=== PATIENT | female | born 1960 | race Hispanic/Latino ===

== ENCOUNTER → 2017-12-17 | Day surgery (SDC) | payer OTHER ==
[~2017-12-17] VITALS: Ht 167.6 cm; Wt 90.7 kg
[~2017-12-17] MED LIST: CRESTOR10 M1 PO; GLUCOPHAGE1000 M1 PO; LISINOPRIL-HCT1 EACH PO; NOVOLOG100 UNIT/2 SC; VICODIN5-300 PO
--- NOTE | 2017-12-21 14:23 | Operative Report ---
Operative/Inv Procedure Report Surgery Date: 12/17/17 Name of Procedure: D&C hysteroscopy Pre-Operative Diagnosis: Menorrhagia Post-Operative Diagnosis: Same Estimated Blood Loss: less than 50ml Surgeon/Insights Analyst: Trudy Arredondo MD Anesthesia: moderate sedation Operative/Procedure Note Note: Patient was taken to the operating room placed in dorsal supine position. After adequate anesthesia, patient was prepped and draped for surgery. Examination under anesthesia was performed. CO2 tenaculum was placed on the anterior lip of the cervix gentle downward traction was used. The cervix was dilated 29 Hegar to left insertion of the hysteroscope. Under direct visualization to hysteroscopy was performed using gas hysteroscope was removed and endocervical curettage was performed. And endometrial curettage was performed. All instruments removed from the vagina. The counts were correct the patient was awakened from anesthesia. And transported to recovery room awake and alert.
== END ==
LOC: STS 02:21
DX: N95.0 Postmenopausal bleeding (principal); N72 Inflammatory disease of cervix uteri; N84.0 Polyp of corpus uteri; E10.9 Type 1 diabetes mellitus without complications; Z79.4 Long term (current) use of insulin; I10 Essential (primary) hypertension
CPT/HCPCS: 88305; J2250

== ENCOUNTER → 2018-04-01 | Day surgery (SDC) | payer OTHER ==
[~2018-04-01] VITALS: Ht 167.6 cm; Wt 90.7 kg
--- NOTE | 2018-04-01 11:46 | ULTRASOUND REPORT ---
EXAMINATION: Intraoperative ultrasound CLINICAL INFORMATION: Metromenorrhagia COMPARISON: None. TECHNIQUE: Intraoperative ultrasound was provided for use by Dr. Arredondo. A total of 18 images were saved to PACS. A radiologist was not present during the procedure. FINDINGS\E\IMPRESSION: Intraoperative ultrasound provided for use by Dr. Arredondo. Please see operative note for detailed findings.
--- NOTE | 2018-04-06 13:19 | Operative Report ---
Operative/Inv Procedure Report Surgery Date: 04/01/18 Name of Procedure: D&C cryoablation under ultrasound guidance Pre-Operative Diagnosis: metromenorrhagia Post-Operative Diagnosis: Same Estimated Blood Loss: scant Surgeon/Tile Layer Drainage: Arnulfo DIAS,Trudy Castrejon Anesthesia: local monitored anesthesi Operative/Procedure Note Note: Serial patient was taken the operating position assessment progress. Dorsal position the vagina from dorsal fashion bladder was catheterized examination anesthesia performed at this point bladder was filled approximately 250 mL normal saline to contact personally into cervix and cervix dilated 29 Hegar on the a sharp curettage endometrial was performed sharp curettage and cervical was found to center pathology at this point the probe was placed under ultrasound guidance into the uterus for approximately 8 minutes on each side stasis was apparent probe was heated and removed I this point the on since removed the vagina patient was returned spine position awakened from anesthesia and transferred recovery room awake alert counts correct
== END ==
LOC: STS 02:34 → XRY 09:00
DX: N95.0 Postmenopausal bleeding (principal); N85.8 Other specified noninflammatory disorders of uterus; I10 Essential (primary) hypertension; E11.9 Type 2 diabetes mellitus without complications; Z79.4 Long term (current) use of insulin; Z79.84 Long term (current) use of oral hypoglycemic drugs
CPT/HCPCS: 36415; 76998; 93005; 93010; J2250

== ENCOUNTER 2018-05-06 01:54 | Inpatient (IN) | payer OTHER ==
[~2018-05-06] VITALS: Ht 167.6 cm; Wt 89.8 kg
[~2018-05-06 01:54] MED LIST changes: +FISH OIL 1,001000 MG PO; +NASONEX17 GM NASB
--- NOTE | 2018-05-06 09:33 | Operative Report ---
Operative/Inv Procedure Report Surgery Date: 05/06/18 Name of Procedure: cystoscopy: bilateral stent insertion Pre-Operative Diagnosis: Menometrorrhagia Post-Operative Diagnosis: same Estimated Blood Loss: scant Surgeon/Export Packer: MD Joe, Jim-urology Anesthesia: general endotracheal tube Specimens: ucx Complications: none Operative/Procedure Note Note: The patient was taken to the operating room and placed on the OR table in supine position. Timeout was performed, with the patient awake, to confirm identify, planned procedures, anesthesia, antibiotics and other pertinent deacon-operative information. After adequate anesthesia, and IV antibiotics, the patient was placed in lithotomy Yellow-fin stirrups. She was then draped and prepped in the usual surgical fashion, including a vaginal prep. A 22 Tajik cystoscope sheath with a 30 angle lens was inserted into the bladder without significant difficulty. The bladder was thoroughly and systematically examined, and was noted to be free of tumor, free of stone, free of endometriosis. Both ureteral orifices were in their orthotopic positions with clear reflux bilaterally. Under direct visualization the left orifice was intubated with a 5 Tajik whistle-tip catheter, which was advanced easily into the left kidney pelvis. The right ureteral orifice was intubated with a second 5 Tajik ureteral whistle tip catheter, and advanced into the right renal pelvis without difficulty. For identification purposes the blue marked stent went into the left kidney and the right ureteral stent was marked red. Urine culture was obtained and sent to pathology. The cystoscope was then removed leaving both stents in proper place. An 18 Tajik Quijano catheter was inserted draining clear fluid and 10 mL of sterile water was then placed in the balloon. The ends ureteral stents, which protruded externally, were taped to the Quijano catheter in order to secure their position. The individual ureteral stents were then connected to their individual drainage devices. All sponge needle and instrument count were correct at the end of this case. The patient tolerated the procedure well. The patient was then placed in supine position with Venodyne's in place. At this Dr. Arredondo was able to proceed with the patient's surgery. Discharge Disposition: proceed with Dr. Arredondo CC: Jim Diaz MD
--- NOTE | 2018-05-06 10:03 | Operative Report ---
Operative/Inv Procedure Report Surgery Date: 05/06/18 Name of Procedure: Supracervical hysterectomy bilateral salpingo-oophorectomy removal of stents Pre-Operative Diagnosis: Pelvic pain Post-Operative Diagnosis: Same Estimated Blood Loss: 500 Surgeon/Hospice Entrance Attendant: Arnulfo DIAS,Trudy Castrejon and Enrique Ghosh Anesthesia: general endotracheal tube Operative/Procedure Note Note: C patient was taken to the operating room placed supine position after adequate induction of general anesthesia endotracheal tube patient was placed in dorsal lithotomy position examination under anesthesia performed a cystoscopy was performed stents were placed by Jim Diaz MD patient was returned supine position I at this point the abdomen was prepped and draped so fashion through an old Pfannenstiel skin incision skin was cut was carried down to rectus fascia which was cut in curvilinear fashion I direction peritoneal cavity was entered high into the abdomen the eye at this point the Franco O'Jorge was placed in usual fashion patient tolerated that well. On the round ligament on the right was identified suture-ligated using 0 round ligament left was identified and sutured using 0 patient tolerated that well. The bladder flap was developed sharply as well as bluntly sequentially cervical branches uterine artery and the right left were clamped and cut to level of the external os the were suture- ligated using 0 hemostasis was apparent specimen was removed using a Bovie this cases supracervical hysterectomy the cuff was reapproximated using 0 hemostasis was apparent at this point the right ovary and tube were held with a Gary clamped with a sanders ducts 2 removed and the pedicle was oversewn 2 using 0 hemostasis was apparent left tube was picked up with a Gary clamp 2 Sanders ducts the r left ovary and tube were removed. At this point all pedicles were reexamined and resutured the cuff was found to be hemostatic and was irrigated copious amounts warm saline until clear on since removed from the abdomen after Ammon had been applied to the cervical cough peritoneum was reapproximated 0 the fascia was reapproximated to #1 Maxon sutures hemostasis was apparent simultaneous tissue was reapproximated using 20 skin was reapproximated [place] the end the case stents removed bilaterally intact on patient was returned spine position extubated awakened from anesthesia and transferred recovery room awake alert counts correct Findings: Size uterus normal ovaries otherwise normal anatomy
[2018-05-06 17:32] LABS: ABSOLUTE BASOPHIL COUNT 0 /CUMM (0.0-0.2); ABSOLUTE EOSINOPHIL COUNT 0 /CUMM (0.0-0.7); ABSOLUTE GRANULOCYTE CT 11.4 /CUMM (1.4-6.5); ABSOLUTE LYMPH COUNT 0.8 /CUMM (1.2-3.4); ABSOLUTE MONOCYTE COUNT 0.2 /CUMM (0.10-0.60); BASOPHIL % 0 % (0.0-2.0); EOSINOPHIL % 0 % (0-5); HEMATOCRIT 41.6 % (37-47); MEAN CORPUSCULAR HGB 28.8 PG (27.0-31.0); MEAN CORPUSCULAR HGB CONC 33.3 G/DL (33.0-37.0); MEAN CORPUSCULAR VOLUME 86.6 FL (81.0-99.0); MEAN PLATELET VOLUME 10.7 FL (7.4-10.4); PLATELET COUNT 234 /CUMM (130-400); RBC DISTRIBUTION WIDTH 14.2 % (11.5-14.5)
[2018-05-06 17:40] LABS: WHITE BLOOD CELL COUNT 12.4 /CUMM (4.8-10.8)
--- NOTE | 2018-05-06 21:25 | Cons- Medical ---
General Information and HPI Consulting Request Date of Consult: 05/06/18 Requested By: Trudy Arredondo MD Reason for Consult: Manage her diabetes Source of Information: patient, old records Exam Limitations: no limitations History of Present Illness: 57 year old female admitted for elective surgery. History od DM2,Hyperlipidemia, hypertension. Today had a supracervical hysterectomy and bilateral salpingooophorectomy, did well sugars slighty elevated got insulin coverage once , Will restart oral medications in AM and monitor sugars closely. Allergies/Medications Allergies: Coded Allergies: No Known Allergies (03/31/18) Home Med List: Insulin Aspart (Novolog) 100 UNIT/ML VIAL 40 UNITS SC BID DM (Reported) Lisinopril/Hydrochlorothiazide (Lisinopril-Hctz 20-12.5 MG Tab) 20 MG-12.5 MG TABLET 1 TAB PO DAILY BP (Reported) Metformin HCl (Glucophage) 1,000 MG TABLET 1 TAB PO BID DM (Reported) Mometasone Furoate (Nasonex) 50 MCG SPRAY.PUMP 1 SPRAY NASB DAILY ALLERGIES ( Reported) [place]-3/Dha/Epa/Fish Oil (Fish Oil 1,000 MG Softgel) (Unknown Strength) CAPSULE (Unknown Dose) PO DAILY SUPPLEMENT (Reported) Rosuvastatin Calcium (Crestor) 10 MG TABLET 1 TAB PO DAILY CHOLESTEROL ( Reported) Current Medications: Current Medications Sig/Eddy Start time Last Medication Dose Route Stop Time Status Admin Acetaminophen 1,000 MG .STK-MED ONE 05/06 07 DC IV 05/06 0703 Atorvastatin Calcium 40 MG 1700 05/06 1700 AC 05/06 PO 1704 Cefoxitin Sodium 2,000 MG ONCE 05/06 0000 NR IV 05/06 2359 Dexamethasone 4 MG .STK-MED ONE 05/06 07 DC IM 05/06 07 Dextrose/Lactated 1,000 ML Q8H 05/06 1015 AC 05/06 Ringer's IV 1915 Diphenhydramine HCl 25 MG Q6P PRN 05/06 1015 AC INJ Docusate Sodium 100 MG BID 05/06 2100 AC 05/06 PO 2011 Duloxetine HCl 30 MG DAILY 05/06 1250 AC 05/06 PO 1653 Enoxaparin Sodium 40 MG DAILY 05/07 0900 AC SC Fentanyl Citrate 200 MCG .STK-MED ONE 05/06 07 DC IM 05/06 0703 Hydrochlorothiazide 12.5 MG DAILY 05/06 1600 AC 05/06 PO 1654 Hydromorphone HCl 2 MG .STK-MED ONE 05/06 1049 DC IM 05/06 1050 Hydromorphone HCl 2 MG .STK-MED ONE 05/06 1029 DC IM 05/06 1030 Hydromorphone HCl 50 MG Q24H PRN 05/06 1015 AC Sodium Chloride 45 ML IV Hydromorphone HCl 2 MG .STK-MED ONE 05/06 0701 DC IM 05/06 0702 Ibuprofen 800 MG Q6P PRN 05/07 1015 AC PO Insulin Human Regular 3 UNITS ONCE ONE 05/06 1845 DC 05/06 SC 05/06 1846 1847 Ketorolac 30 MG Q6P PRN 05/06 1015 AC 05/06 Tromethamine INJ 1523 Ketorolac 30 MG .STK-MED ONE 05/06 1013 DC Tromethamine IV 05/06 1014 Linaclotide 145 MCG 0700 05/06 1600 AC 05/06 PO 1654 Lisinopril 20 MG DAILY 05/06 1600 AC 05/06 PO 1656 Magnesium Hydroxide 30 ML AT BEDTIME NEED.. 05/07 1015 AC PO Metformin HCl 500 MG 0800,1700 05/07 0800 AC PO Midazolam HCl 2 MG .STK-MED ONE 05/06 0702 DC IM 05/06 0703 Ondansetron HCl 4 MG Q6P PRN 05/06 1015 AC 05/06 IV 1525 Ondansetron HCl 4 MG .STK-MED ONE 05/06 1013 DC IV 05/06 1014 Oxycodone/ 1 TAB Q4P PRN 05/07 1015 AC Acetaminophen PO Sitagliptin Phosphate 100 MG 8AM 05/07 0800 AC PO Review of Systems Review of Systems Constitutional: Reports: see HPI. Past History Medical History Neurological: NONE EENT: NONE Cardiovascular: HIGH CHOLESTEROL Respiratory: NONE Gastrointestinal: NONE Hepatic: NONE Renal: NONE Musculoskeletal: NONE Psychiatric: NONE Endocrine: diabetes Blood Disorders: NONE Cancer(s): NONE ACCOUNTANT MANAGER/Reproductive: NONE Surgical History Surgical History: cholecystectomy, , hysterectomy Psychosocial History Smoking Status: Unknown If Ever Smoked Exam & Diagnostic Data Last 24 Hrs of Vital Signs/I&O Vital Signs Date Time Temp Pulse Resp B/P B/P Pulse O2 O2 Flow FiO2 Mean Ox Delivery Rate 05/06 1656 98.6 84 18 158/70 Physical Exam General Appearance: well developed/nourished, no apparent distress, alert, awake Head: atraumatic, normal appearance Eyes: Bilateral: PERRL, EOMI. Ears, Nose, Throat: normal pharynx Neck: supple, full range of motion Respiratory: normal breath sounds, lungs clear Cardiovascular: regular rate/rhythm, norml femoral pulses equa Gastrointestinal: non-tender, slight tender to deep palpation (post OP.) Rectal: deferred Extremities: normal inspection, no edema Neurologic/Psych: alert, oriented x 3, substation wireman II-XII nml as tested Cranial Nerves: normal hearing, normal speech, PERRL Skin: warm/dry Lymphatic: no anterior cervical allen Last 24 Hrs of Labs/Salvatore: Laboratory Tests 05/06/18 1705: CBC w Diff NO MAN DIFF REQ, RBC 4.80, MCV 86.6, MCH 28.8, MCHC 33.3, RDW 14.2, MPV 10.7 H, Gran % 92.0 H, Lymphocytes % 6.3 L, Monocytes % 1.7, Eosinophils % 0, Basophils % 0, Absolute Granulocytes 11.4 H, Absolute Lymphocytes 0.8 L, Absolute Monocytes 0.2, Absolute Eosinophils 0, Absolute Basophils 0 Assessment/Plan Assessment/Plan Dr Arredondo Problem List: 1. Diabetes 2. Hyperlipidemia 3. Hypertension 4. Post hysterectomy menopause Copies To: Arnulfo DIAS,Trudy Castrejon; Lorie DIAS,Damien Vega Acknowledgment - Thank you for your consult request. Attending MD Review Statement Attending Statement Attending MD Statement: examined this patient, discuss w/resident/PA/LAUNDRY PRESSER
[2018-05-07 09:07] VITALS: BP 136/68
[2018-05-07 09:13] LABS: ABSOLUTE BASOPHIL COUNT 0 /CUMM (0.0-0.2); ABSOLUTE EOSINOPHIL COUNT 0 /CUMM (0.0-0.7); ABSOLUTE GRANULOCYTE CT 7.2 /CUMM (1.4-6.5); ABSOLUTE LYMPH COUNT 2.1 /CUMM (1.2-3.4); ABSOLUTE MONOCYTE COUNT 0.7 /CUMM (0.10-0.60); BASOPHIL % 0.2 % (0.0-2.0); EOSINOPHIL % 0.3 % (0-5); GRANULOCYTE % 71.5 % (42.2-75.2); HEMATOCRIT 37.9 % (37-47); MEAN CORPUSCULAR HGB 29.3 PG (27.0-31.0); MEAN CORPUSCULAR HGB CONC 34.1 G/DL (33.0-37.0); MEAN CORPUSCULAR VOLUME 85.9 FL (81.0-99.0); PLATELET COUNT 215 /CUMM (130-400); RBC DISTRIBUTION WIDTH 13.8 % (11.5-14.5); RED BLOOD CELL CT 4.41 /CUMM (4.20-5.40); WHITE BLOOD CELL COUNT 10.1 /CUMM (4.8-10.8)
--- NOTE | 2018-05-07 11:22 | PN- Att Addend ---
Attending Addendum Attending Brief Note No new complaints, vital signs are stable, no fever. Blood sugars still little elevated this morning to 224, discontinued IVs, and restarted the p.o. hypoglycemic medications and diabetic diet. Continue treatments as per BINMAN, continue to ambulate. Current Medications Sig/Eddy Start time Last Medication Dose Route Stop Time Status Admin Atorvastatin Calcium 40 MG 1700 05/06 1700 AC 05/06 PO 1704 Cefoxitin Sodium 2,000 MG ONCE 05/06 0000 DC IV 05/06 2359 Dextrose/Lactated 1,000 ML Q8H 05/06 1015 AC 05/07 Ringer's IV 0300 Diphenhydramine HCl 25 MG Q6P PRN 05/06 1015 AC INJ Docusate Sodium 100 MG BID 05/06 2100 AC 05/07 PO 0902 Duloxetine HCl 30 MG DAILY 05/06 1250 AC 05/07 PO 0902 Enoxaparin Sodium 40 MG DAILY 05/07 0900 AC 05/07 SC 0907 Hydrochlorothiazide 12.5 MG DAILY 05/06 1600 AC 05/07 PO 0902 Hydromorphone HCl 50 MG Q24H PRN 05/06 1015 AC Sodium Chloride 45 ML IV Ibuprofen 800 MG Q6P PRN 05/07 1015 AC PO Insulin Human Regular 3 UNITS ONCE ONE 05/06 1845 DC 05/06 FL 05/06 1846 1847 Ketorolac 30 MG Q6P PRN 05/06 1015 AC 05/07 Tromethamine INJ 1033 Linaclotide 145 MCG 0700 05/06 1600 AC 05/07 PO 0652 Lisinopril 20 MG DAILY 05/06 1600 AC 05/07 PO 0907 Magnesium Hydroxide 30 ML AT BEDTIME NEED.. 05/07 1015 AC PO Metformin HCl 500 MG 0800,1700 05/07 0800 AC 05/07 PO 0750 Ondansetron HCl 4 MG Q6P PRN 05/06 1015 AC 05/07 IV 0408 Oxycodone/ 1 TAB Q4P PRN 05/07 1015 AC Acetaminophen PO Sitagliptin Phosphate 100 MG 8AM 05/07 0800 AC 05/07 PO 0750 Laboratory Tests 05/07/18 0727: CBC w Diff NO MAN DIFF REQ, RBC 4.41, MCV 85.9, MCH 29.3, MCHC 34.1, RDW 13.8, MPV 11.0 H, Gran % 71.5, Lymphocytes % 21.3, Monocytes % 6.7, Eosinophils % 0.3 , Basophils % 0.2, Absolute Granulocytes 7.2 H, Absolute Lymphocytes 2.1, Absolute Monocytes 0.7 H, Absolute Eosinophils 0, Absolute Basophils 0 05/06/18 1705: CBC w Diff NO MAN DIFF REQ, RBC 4.80, MCV 86.6, MCH 28.8, MCHC 33.3, RDW 14.2, MPV 10.7 H, Gran % 92.0 H, Lymphocytes % 6.3 L, Monocytes % 1.7, Eosinophils % 0, Basophils % 0, Absolute Granulocytes 11.4 H, Absolute Lymphocytes 0.8 L, Absolute Monocytes 0.2, Absolute Eosinophils 0, Absolute Basophils 0 Vital Signs Date Time Temp Pulse Resp B/P B/P Pulse O2 O2 Flow FiO2 Mean Ox Delivery Rate 05/07 0907 82 136/68 05/06 1656 98.6 84 18 158/70
--- NOTE | 2018-05-07 12:10 | PN- Post Delivery/GYN ---
Subjective Subjective: NO COMPLAINTS Objective Last 24 Hrs of Vital Signs/I&O Vital Signs Date Time Temp Pulse Resp B/P B/P Pulse O2 O2 Flow FiO2 Mean Ox Delivery Rate 05/07 0907 82 136/68 05/06 1656 98.6 84 18 158/70 Physical Exam: PE HF IN NAD -FLATUS ABD SOFT NT INCISION CDI EXT -EDEMA--HOMANS Assessment/Plan Assessment/Plan ASSESS S/P SUPRA CERVICAL HYST PLAN CONT PPC
[2018-05-08] MEDS ORDERED: PERCOCET 5-3251 EACH PO (10:26)
[2018-05-08] MEDS ORDERED: IBUPROFEN800 M1 PO (10:26)
== END 2018-05-08 10:59 | DRG 513 ==
LOC: SDA 01:54 → ENRESERV 10:20 → ENTRNSPT 11:36 → EDTRNSPTSTS 11:41 → GNO 11:59 → CMPTRNSPT 12:18 → GNO 05-08 10:59
PROVIDERS: Specialist
PROC: 0UT20ZZ Resection of Bilateral Ovaries, Open Approach (ICD-10-PCS; principal; 2018-05-06)
PROC: 0UT90ZZ Resection of Uterus, Open Approach (ICD-10-PCS; principal; 2018-05-06)
PROC: 0UT70ZZ Resection of Bilateral Fallopian Tubes, Open Approach (ICD-10-PCS; principal; 2018-05-06)
PROC: 0T744DZ Dilation of Left Kidney Pelvis with Intraluminal Device, Percutaneous Endoscopic Approach (ICD-10-PCS; 2018-05-06)
PROC: 0T734DZ Dilation of Right Kidney Pelvis with Intraluminal Device, Percutaneous Endoscopic Approach (ICD-10-PCS; 2018-05-06)
PROC: 3E0T3BZ Introduction of Anesthetic Agent into Peripheral Nerves and Plexi, Percutaneous Approach (ICD-10-PCS; 2018-05-06)
DX: N92.1 Excessive and frequent menstruation with irregular cycle (principal); E78.5 Hyperlipidemia, unspecified; E11.9 Type 2 diabetes mellitus without complications; I10 Essential (primary) hypertension; E66.9 Obesity, unspecified; Z79.84 Long term (current) use of oral hypoglycemic drugs
CPT/HCPCS: GNOS; 36415; 81003; 87086; 93005; 93010; J0131; J0694; J1100; J1170; J1200; J1650; J1815; J1885; J2405